=== PATIENT | female | born 1965 | race Hispanic/Latino ===

== ENCOUNTER → 2017-07-24 | Outpatient (CLI) | payer OTHER ==
[~2017-07-24] MED LIST: LEVOXYL88 MCG PO; LYRICA75 MG PO
--- NOTE | 2017-08-05 08:30 | Diagnostic Imaging Report ---
#[id number] - MGSCRNBI #BILATERAL DIGITAL SCREENING MAMMOGRAM WITH CAD: 07/24/2017 CLINICAL: Routine screening. Comparison is made to exams dated: 07/02/2016 mammogram, 07/02/2016 ultrasound, 05/31/2016 mammogram and 03/24/2012 mammogram - [facility]. Current study contains 9 films. The tissue of both breasts is heterogeneously dense. This may lower the sensitivity of mammography. Current study was also evaluated with a Computer Aided Detection (CAD) system. Bilateral breast implants are intact. Nodule in the left breast confirmed on prior studies to be a lymph node is not significantly changed when allowing for difference in technique. No significant masses, calcifications, or other findings are seen in either breast. There has been no significant interval change. IMPRESSION: BENIGN There is no mammographic evidence of malignancy. A 1 year screening mammogram is recommended. The patient will be notified by letter of the results. Sourav Arcos Jr., D.O. cw/:08/04/2017 12:48:49 Vp [employer]: Mary GUERRERO(R)(M), [facility] letter sent: Compared to Prior B9 Mammogram BI-RADS: 2 Benign
== END ==
LOC: MAMMO 10:01
PROVIDERS: ATTEND Family Medicine
DX: Z12.31 Encounter for screening mammogram for malignant neoplasm of breast (principal)
CPT/HCPCS: 77067

== ENCOUNTER → 2018-11-30 | Outpatient (CLI) | payer OTHER ==
--- NOTE | 2018-12-07 08:39 | Diagnostic Imaging Report ---
#[id number] - MGSCRBIL #BILATERAL DIGITAL SCREENING MAMMOGRAM WITH CAD: 11/30/2018 CLINICAL: Routine screening. Comparison is made to exams dated: 07/24/2017 mammogram, 07/02/2016 mammogram and 05/31/2016 mammogram - [facility]. Current study contains 8 films. There are scattered fibroglandular elements in both breasts. Current study was also evaluated with a Computer Aided Detection (CAD) system. Benign appearing calcifications are noted bilaterally. Bilateral breast implants are intact. There are benign nodes in both breasts. No significant masses, calcifications, or other findings are seen in either breast. IMPRESSION: BENIGN There is no mammographic evidence of malignancy. A 1 year screening mammogram is recommended. The patient will be notified by letter of the results. DIMA CHAVARRIA M.D. ct/penrad:12/04/2018 15:18:16 Debubblizer: Mary LO)(Hortensia), [facility] letter sent: Normal Exam Mammogram BI-RADS: 2 Benign
== END ==
LOC: MAMMO 15:50
PROVIDERS: ATTEND Family Medicine
DX: Z12.31 Encounter for screening mammogram for malignant neoplasm of breast (principal)
CPT/HCPCS: 77067

== ENCOUNTER 2020-03-19 00:30 | Emergency (ER) | payer SELFPAY ==
[~2020-03-19] VITALS: Ht 165.1 cm; Wt 61.2 kg
[2020-03-19] MEDS ORDERED: AZITHROMYCIN 250 MG TAB PO ONE (01:00)
[2020-03-19] MEDS ORDERED: ACETAMINOPHEN/CODEINE ELIX 120-12 MG/5 ML UDC NG ONE (01:00)
[2020-03-19] MEDS ORDERED: ACETAMINOPHEN/CODEINE 300MG - 30MG TAB PO ONE (01:00)
[2020-03-19] MEDS ORDERED: ONDANSETRON HCL 4 MG ORAL DISINTEGRATING TAB PO ONE (01:15)
--- NOTE | 2020-03-19 01:24 | Diagnostic Imaging Report ---
EXAMINATION: CHEST SINGLE (PORTABLE) INDICATION: ^Y ^COVID ^[id number] ^[id number] COMPARISON: None FINDINGS: TUBES and LINES: None. LUNGS: Normal lung volumes. Patchy mid and lower lung hazy airspace opacities. PLEURA: No pleural effusion or pneumothorax. HEART AND MEDIASTINUM: The cardiomediastinal silhouette is unremarkable. BONES AND SOFT TISSUES: Cervical fixation hardware. No acute osseous lesion. Soft tissues are unremarkable. UPPER ABDOMEN: No free air under the diaphragm. There are cholecystectomy clips. IMPRESSION: Multifocal pneumonia. Signed by: Filiberto Grullon DO on 03/19/2020 1:21 AM
--- NOTE | 2020-03-19 01:34 | Emergency Department Note ---
History of Present Illnes History of Present Illness Chief Complaint: COVID PUI History of Present Illness This is a 55 year old female arrives to the ED with complaints of shortness of breath after testing positive for the coronavirus on Friday.. Chief Complaint Comment Patient states she tested postive for COVID-19 on and has felt short of breath since. Patient noted to be tachypneic with normal oxygen saturation levels. Patient denies any fever at home. States she has been taking motrin and tea at home. ER MD to room for inital evaluation. Historian: Patient Arrival Mode: Car Duration (how long): day(s) Timing of current episode: constant Progression: waxing and waning Chronicity: new Past Medical/Family History Physician Review I have reviewed the patient's past medical and family history. Any updates have been documented here. Past Medical History Recent Fever: No Clinical Suspicion of Infectio: No New/Unexplained Change in Ment: No Past Medical History: None Past Surgical History: Cholecysctectomy, Appendectomy, Back Surgery Social History Smoking Cessation: Never Smoker Counseling Performed: No Alcohol Use: None Any Illegal Drug Use: No Other Any Pre-Existing Lines (PICC,: No Review of Systems Review of Systems Constitutional: Reports no symptoms EENTM: Reports no symptoms Cardiovascular: Reports no symptoms Respiratory: Reports as per HPI Gastrointestinal: Reports no symptoms Genitourinary: Reports no symptoms Musculoskeletal: Reports no symptoms Integumentary: Reports no symptoms Neurological: Reports no symptoms Psychological: Reports no symptoms Endocrine: Reports no symptoms Hematological/Lymphatic: Reports no symptoms Physical Exam Related Data Allergies: Uncoded Allergies: CIPROFLOXACIN (Allergy, Unknown, 03/19/20) Triage Vital Signs Vital Signs Date Time Temp Pulse Resp B/P (MAP) Pulse Ox O2 Delivery O2 Flow Rate FiO2 03/19/20 00:39 99.6 88 41 141/81 99 Room Air Vital signs reviewed: Yes Physical Exam CONSTITUTIONAL Constitutional: Present well-developed, Present well-nourished HENT HENT: Present normocephalic, Present atraumatic, Present oropharynx clear/moist, Present nose normal HENT L/R: Present left ext ear normal, Present right ext ear normal EYES Eyes: Reports PERRL, Reports conjunctivae normal NECK Neck: Present ROM normal PULMONARY Pulmonary: Present effort normal, Present breath sounds normal, Present other (mild tachypnea) CARDIOVASCULAR Cardiovascular: Present regular rhythm, Present heart sounds normal, Present capillary refill normal, Present normal rate GASTROINTESTINAL Abdominal: Present soft, Present nontender, Present bowel sounds normal GENITOURINARY Genitourinary: Present exam deferred SKIN Skin: Present warm, Present dry MUSCULOSKELETAL Musculoskeletal: Present ROM normal NEUROLOGICAL Neurological: Present alert, Present oriented x 3, Present no gross motor or sensory deficits PSYCHOLOGICAL Psychological: Present mood/affect normal, Present judgement normal Results Imaging Imaging results reviewed: Yes Procedures 12 Lead ECG Interpretation ECG Interpretation : ECG: ECG 1 Prior ECG tracings: reviewed Rhythm: sinus rhythm QRS axis: left ST segments normal: Yes T waves normal: Yes Clinical Impression: normal ECG Assessment & Plan Medical Decision Making MDM 55-year-old well-appearing female arrived to the ED after being diagnosed with a coronavirus. Patient notes ecchymotic tachypneic on exam but otherwise saturating 100% even on exertion without requiring supplemental oxygen. Patient's chest x-ray is concerning multifocal pneumonia, however, she does not require O2 support this time in stable for discharge home. Patient discharged home on Zithromax, Zofran/Tylenol with codeine for her cough. Strict retroflex return given. Patient stable at time of discharge. Assessment & Plan Final Impression: (1) COVID-19 Depart Disposition: HOME, SELF-CARE Last Vital Signs Date Time Temp Pulse Resp B/P (MAP) Pulse Ox O2 Delivery O2 Flow Rate FiO2 03/19/20 00:52 91 28 133/88 96 Room Air 03/19/20 00:39 99.6 Home Meds Active Scripts Codeine Phosphate/Guaifenesin (Guaifen-Codeine 200-20 mg/10Ml) 10 Ml Liquid, 10 ML PO Q8HR PRN for COUGH, #50 Prov:SANDHIR, AMBICA, DO 03/19/20 Azithromycin (Z-SANDY) 250 Mg Tablet, 250 MG PO UD, #1 UDPKT Z-Pack Prov:SANDHIR, AMBICA, DO 03/19/20 Ondansetron Hcl* (ZOFRAN*) 4 Mg Tablet, 4 MG SL Q6H PRN for NAUSEA, #14 MG 0 Refills Prov:SANDHIR, AMBICA, DO 03/19/20 Reported Medications Pregabalin (LYRICA) 75 Mg Cap, 75 MG PO DAILY, CAP 12/27/13 Levothyroxine Sodium (LEVOXYL) 88 Mcg Tablet, 88 MCG PO DAILY 12/27/13 Medications in the ED Acetaminophen/ Codeine Phosphate 1 ea NOW ONCE PO ; Start 03/19/20 at 01:00; Stop 03/19/20 at 00:54; Status DC Azithromycin 500 mg ONCE ONCE PO Last administered on 03/19/20at 01:19; Admin Dose 500 MG; Start 03/19/20 at 01:00; Stop 03/19/20 at 01:09; Status DC Acetaminophen/ Codeine Phosphate 10 ml ONCE ONCE NG ; Start 03/19/20 at 01:00; Stop 03/19/20 at 01:09; Status DC Ondansetron HCl 4 mg ONCE ONCE PO Last administered on 03/19/20at 01:19; Admin Dose 4 MG; Start 03/19/20 at 01:15; Stop 03/19/20 at 01:16; Status DC GISEL VARGAS DO Mar 19, 2020 01:34
[2020-03-19] MEDS ORDERED: GUAIFEN-CODEINE10 ML PO (01:37)
[2020-03-19] MEDS ORDERED: AZITHROMYCIN250 MG PO (01:37)
[2020-03-19] MEDS ORDERED: ZOFRAN4 MG SL (01:37)
== END 2020-03-19 02:13 | disposition home or self-care (01) ==
LOC: ER 00:40
DX: U07.1 COVID-19 (principal); R50.9 Fever, unspecified; R06.02 Shortness of breath
CPT/HCPCS: 71045; 93005; 99283; Q0162

== ENCOUNTER 2020-03-21 15:32 | Inpatient (IN) | payer OTHER, SELFPAY ==
[~2020-03-21] VITALS: Ht 165.1 cm; Wt 61.2 kg
[~2020-03-21 15:32] MED LIST changes: +AZITHROMYCIN250 MG PO; +GUAIFEN-CODEINE10 ML PO; +ZOFRAN4 MG SL
[2020-03-21] MEDS ORDERED: SODIUM CHLORIDE 0.9% 1000ML 1,000 ML IV STA (16:20)
[2020-03-21] MEDS ORDERED: MORPHINE SULFATE 2 MG/ML SYR 1ML IV NR (16:20)
[2020-03-21] MEDS ORDERED: ONDANSETRON HCL INJ 2MG/ML 2ML 2 MG/ML VIAL IV NR (16:30)
[2020-03-21] MEDS ORDERED: AZITHROMYCIN 500MG/NS 250 ML 250 ML IV SCH (16:30)
[2020-03-21 16:49] LABS: BASOPHILS % 0.3 % (0.0-1.0); EOSINOPHILS % 0.3 % (0.0-6.0); HEMOGLOBIN 16.4 g/dL (12.0-16.0); LYMPHOCYTES % 16.8 % (18.0-39.1); MEAN CORPUSCULAR HEMOGLOBIN 30.4 pg (28-32); MEAN CORPUSCULAR HGB CONC 34.2 g/dL (31-35); MEAN CORPUSCULAR VOLUME 89.1 fL (81-99); MONOCYTES # (AUTO) 0.6 (0.2-0.8); MONOCYTES % 9.6 % (4.4-11.3); NEUTROPHILS # (AUTO) 4.4 (2.1-6.9); NEUTROPHILS % 72.5 % (38.7-80.0); PLATELET COUNT 322 x10e3/uL (140-360); RED BLOOD COUNT 5.39 x10e6/uL (3.6-5.1)
[2020-03-21 16:58] LABS: INR 0.88; PARTIAL THROMBOPLASTIN TIME 34.3 seconds (23.8-35.5); PROTHROMBIN TIME 12.4 seconds (11.9-14.5)
[2020-03-21 17:05] LABS: ALANINE AMINOTRANSFERASE 26 IU/L (0-55); ALBUMIN/GLOBULIN RATIO 0.7 (0.8-2.0); ALKALINE PHOSPHATASE 110 IU/L (40-150); ANION GAP 16.9 mmol/L (8-16); BLOOD UREA NITROGEN 9 mg/dL (7-26); BUN/CREATININE RATIO 13 (6-25); CARBON DIOXIDE 25 mmol/L (22-29); CHLORIDE 100 mmol/L (98-107); CREATINE KINASE 16 IU/L (29-168); CREATININE, SERUM 0.67 mg/dL (0.57-1.11); EST GLOMERULAR FILTRATION RATE > 60 ML/MIN (60-); GLUCOSE 93 mg/dL (74-118); POTASSIUM 3.9 mmol/L (3.5-5.1); SODIUM 138 mmol/L (136-145)
--- NOTE | 2020-03-21 17:10 | Diagnostic Imaging Report ---
EXAMINATION: CHEST SINGLE (PORTABLE) INDICATION: ^Y ^covid ^[id number] ^[id number] COMPARISON: Chest radiograph 03/19/2020 FINDINGS: TUBES and LINES: None. LUNGS: Low lung volumes. Patchy bilateral airspace opacities in the lower lobes which is mildly increased on the left compared to prior exam. PLEURA: No pleural effusion or pneumothorax. HEART AND MEDIASTINUM: The cardiomediastinal silhouette is unremarkable. BONES AND SOFT TISSUES: No acute osseous lesion. Soft tissues are unremarkable. UPPER ABDOMEN: No free air under the diaphragm. IMPRESSION: Patchy bilateral lower lobe airspace opacities are increased on the left, remains concerning for multifocal pneumonia. Signed by: Dr. Rob Wolfe M.D. on 03/21/2020 5:07 PM
[2020-03-21] MEDS: ENOXAPARIN 30 MG/0.3 ML SYR SC SCH (17:13)
[2020-03-21] MEDS: DEXAMETHASONE SOD PHOS 10 MG/1 ML VIAL IV SCH (17:13)
[2020-03-21 17:36] LABS: CREATINE KINASE MB < 1.00 ng/mL (0-4.3)
[2020-03-21] MEDS: CEFTRIAXONE SOD 2 GM/NS 100 ML 100 ML IV SCH (18:39)
[2020-03-21] MEDS ORDERED: SODIUM CHLORIDE 0.9% 50ML 50 ML ONE (19:22)
[2020-03-21] MEDS ORDERED: IOPAMIDOL 370 MG/ML 200 ML INFUS..BTL INJ ONE (19:22)
--- NOTE | 2020-03-21 19:39 | Emergency Department Note ---
History of Present Illnes History of Present Illness Chief Complaint: COVID PUI History of Present Illness This is a 55 year old female Patient in from home with complaints of shortness of breath that started this past Friday and has gotten worse. Patient tested positive for Covid on 03/15 with symptoms starting on 03/13/2020. Patient is grunting when she breaths and is tachypneic and tachycardic. Per spouse, the patient had a saturation of 86% on room air at home with their home pulse ox. Historian: Patient Arrival Mode: Car Retail Security Professional Required: No Onset (how long ago): week(s) (1) Radiation: Reports non-radiation Severity: moderate Onset quality: gradual Timing of current episode: constant Progression: worsening Chronicity: new Context: Denies recent illness Relieving factors: none Exacerbating factors: none Associated symptoms: Reports chest pain, Reports cough, Reports fever/chills, Reports headaches, Reports shortness of breath Past Medical/Family History Physician Review I have reviewed the patient's past medical and family history. Any updates have been documented here. Past Medical History Recent Fever: Yes Clinical Suspicion of Infectio: No New/Unexplained Change in Ment: No Past Medical History: None Past Surgical History: Cholecysctectomy, Appendectomy, Back Surgery Social History Smoking Cessation: Never Smoker Counseling Performed: No Alcohol Use: Occasional Any Illegal Drug Use: No TB Exposure/Symptoms: No Physically hurt or threatened: No Family History Family history of heart diseas: No Other Any Pre-Existing Lines (PICC,: No Review of Systems Review of Systems Constitutional: Reports as per HPI, Reports chills, Reports fever EENTM: Reports no symptoms Cardiovascular: Reports as per HPI, Reports chest pain Respiratory: Reports as per HPI, Reports cough, Reports pain with cough, Repo rts dyspnea Gastrointestinal: Reports no symptoms Genitourinary: Reports no symptoms Musculoskeletal: Reports no symptoms Integumentary: Reports no symptoms Neurological: Reports no symptoms Psychological: Reports no symptoms Endocrine: Reports no symptoms Hematological/Lymphatic: Reports no symptoms Physical Exam Related Data Allergies: Uncoded Allergies: CIPROFLOXACIN (Allergy, Unknown, 03/19/20) Triage Vital Signs Vital Signs Date Time Temp Pulse Resp B/P (MAP) Pulse Ox O2 Delivery O2 Flow Rate FiO2 03/21/20 16:10 99.0 110 38 119/91 93 Room Air Vital signs reviewed: Yes Physical Exam CONSTITUTIONAL Constitutional: Present well-developed, Present well-nourished, Present other (ANXIOUS) HENT HENT: Present normocephalic, Present atraumatic, Present oropharynx clear/moist, Present nose normal HENT L/R: Present left ext ear normal, Present right ext ear normal EYES Eyes: Reports PERRL, Reports conjunctivae normal NECK Neck: Present ROM normal PULMONARY Pulmonary: Present breath sounds normal, Present respiratory distress (MILD) CARDIOVASCULAR Cardiovascular: Present regular rhythm, Present heart sounds normal, Present capillary refill normal, Present tachycardia GASTROINTESTINAL Abdominal: Present soft, Present nontender, Present bowel sounds normal GENITOURINARY Genitourinary: Present exam deferred SKIN Skin: Present warm, Present dry MUSCULOSKELETAL Musculoskeletal: Present ROM normal NEUROLOGICAL Neurological: Present alert, Present oriented x 3, Present no gross motor or sensory deficits PSYCHOLOGICAL Psychological: Present mood/affect normal, Present judgement normal Results Laboratory Result Diagram: 03/21/20 1627 03/21/20 1627 Laboratory Laboratory Tests Test 03/21/20 16:46 03/21/20 16:27 White Blood Count 6.12 x10e3/uL (4.8-10.8) Red Blood Count 5.39 x10e6/uL (3.6-5.1) Hemoglobin 16.4 g/dL (12.0-16.0) Hematocrit 48.0 % (34.2-44.1) Mean Corpuscular Volume 89.1 fL (81-99) Mean Corpuscular Hemoglobin 30.4 pg (28-32) Mean Corpuscular Hemoglobin Concent 34.2 g/dL (31-35) Red Cell Distribution Width 12.0 % (11.7-14.4) Platelet Count 322 x10e3/uL (140-360) Neutrophils (%) (Auto) 72.5 % (38.7-80.0) Lymphocytes (%) (Auto) 16.8 % (18.0-39.1) Monocytes (%) (Auto) 9.6 % (4.4-11.3) Eosinophils (%) (Auto) 0.3 % (0.0-6.0) Basophils (%) (Auto) 0.3 % (0.0-1.0) Neutrophils # (Auto) 4.4 (2.1-6.9) Lymphocytes # (Auto) 1.0 (1.0-3.2) Monocytes # (Auto) 0.6 (0.2-0.8) Eosinophils # (Auto) 0.0 (0.0-0.4) Basophils # (Auto) 0.0 (0.0-0.1) Absolute Immature Granulocyte (auto 0.03 x10e3/uL (0-0.1) Prothrombin Time 12.4 seconds (11.9-14.5) Prothromb Time International Ratio 0.88 Activated Partial Thromboplast Time 34.3 seconds (23.8-35.5) D-Dimer Quantitative (PE/DVT) 0.79 ug/mLFEU (0.00-0.45) Sodium Level 138 mmol/L (136-145) Potassium Level 3.9 mmol/L (3.5-5.1) Chloride Level 100 mmol/L (98-107) Carbon Dioxide Level 25 mmol/L (22-29) Anion Gap 16.9 mmol/L (8-16) Blood Urea Nitrogen 9 mg/dL (7-26) Creatinine 0.67 mg/dL (0.57-1.11) Estimat Glomerular Filtration Rate > 60 ML/MIN (60-) BUN/Creatinine Ratio 13 (6-25) Glucose Level 93 mg/dL (74-118) Calcium Level 9.0 mg/dL (8.4-10.2) Total Bilirubin 0.3 mg/dL (0.2-1.2) Aspartate Amino Transf (AST/SGOT) 36 IU/L (5-34) Alanine Aminotransferase (ALT/SGPT) 26 IU/L (0-55) Alkaline Phosphatase 110 IU/L (40-150) Creatine Kinase 16 IU/L (29-168) Creatine Kinase MB < 1.00 ng/mL (0-4.3) Troponin I < 0.001 ng/mL (0-0.300) B-Type Natriuretic Peptide 31.0 pg/mL (0-100) Total Protein 7.3 g/dL (6.5-8.1) Albumin 3.0 g/dL (3.5-5.0) Globulin 4.3 g/dL (2.3-3.5) Albumin/Globulin Ratio 0.7 (0.8-2.0) Lab results reviewed: Yes Imaging Imaging results reviewed: Yes Impressions EXAMINATION: CHEST SINGLE (PORTABLE) INDICATION: ^Y ^covid ^[id number] ^1645 COMPARISON: Chest radiograph 03/19/2020 FINDINGS: TUBES and LINES: None. LUNGS: Low lung volumes. Patchy bilateral airspace opacities in the lower lobes which is mildly increased on the left compared to prior exam. PLEURA: No pleural effusion or pneumothorax. HEART AND MEDIASTINUM: The cardiomediastinal silhouette is unremarkable. BONES AND SOFT TISSUES: No acute osseous lesion. Soft tissues are unremarkable. UPPER ABDOMEN: No free air under the diaphragm. IMPRESSION: Patchy bilateral lower lobe airspace opacities are increased on the left, remains concerning for multifocal pneumonia. Signed by: Dr. Rob Wolfe M.D. on 03/21/2020 5:07 PM Procedures 12 Lead ECG Interpretation ECG Interpretation : ECG: ECG 1 Retail Security Professional: Interpreted by ED physician Date: Mar 21, 2020 Time: 19:24 Rhythm: sinus rhythm Rate: normal BPM: 71 QRS axis: normal ST segments normal: Yes T wave inversion: III, aVR, V1, V3 T waves flattening: aVF, V2, V4, V5, V6 Clinical Impression: abnormal ECG Critical Care Time Total Critical Care Time (min): 30 Critical care time exclusive o: separately billable procedures Critcal care necessary due to: respiratory failure Critcal care time spent by me: discussion w consultants, discussion w primary provider, evaluation patient response to tx, examination of patient, order/perform tx or interventions, order/review laboratory studies, order/review radiographic studies, pulse oximetry, re-evaluation of patient condition, review of old charts Assessment & Plan Medical Decision Making MDM SOB, COUGH, HYPOXIA - LIKELY COVID - CBC, CHEM, ECG, CARDIACS, D-DIMER, BNP, CXR AND CT CHEST IF POSITIVE D-DIMER, COVID SWAB - EVAL PNEUMONIA, COVID19, CHF, PULM EMBOLUS Reassessment Reassessment ADMIT TO DR KOO (FOR PCP KAI), CONSULT DR QUIÑONES Assessment & Plan Final Impression: (1) Pneumonia due to COVID-19 virus (2) Hypoxia Depart Disposition: ADMITTED Last Vital Signs Date Time Temp Pulse Resp B/P (MAP) Pulse Ox O2 Delivery O2 Flow Rate FiO2 03/21/20 18:15 98.8 80 18 138/82 96 03/21/20 16:10 Room Air Home Meds Active Scripts Codeine Phosphate/Guaifenesin (Guaifen-Codeine 200-20 mg/10Ml) 10 Ml Liquid, 10 ML PO Q8HR PRN for COUGH, #50 Prov:GISEL VARGAS, DO 03/19/20 Azithromycin (Z-SANDY) 250 Mg Tablet, 250 MG PO UD, #1 UDPKT Z-Pack Prov:GISEL VARGAS, DO 03/19/20 Ondansetron Hcl* (ZOFRAN*) 4 Mg Tablet, 4 MG SL Q6H PRN for NAUSEA, #14 MG 0 Refills Prov:GISEL VARGAS, DO 03/19/20 Reported Medications Pregabalin (LYRICA) 75 Mg Cap, 75 MG PO DAILY, CAP 12/27/13 Levothyroxine Sodium (LEVOXYL) 88 Mcg Tablet, 88 MCG PO DAILY 12/27/13 Medications in the ED Morphine Sulfate 2 mg ONCE IV ; Start 03/21/20 at 16:20; Stop 03/21/20 at 16:45; Status DC Ondansetron HCl 4 mg ONCE IV Last administered on 03/21/20at 17:13; Admin Dose 4 MG; Start 03/21/20 at 16:30; Stop 03/21/20 at 17:59; Status DC Sodium Chloride 1,000 ml @ 0 mls/hr Q0M STAT IV Last administered on 03/21/20at 17:13; Admin Dose 250 MLS/HR; Start 03/21/20 at 16:20; Stop 03/21/20 at 16:26; Status DC Ceftriaxone Sodium 100 ml @ 100 mls/hr Q24H IV Last administered on 03/21/20at 18:39; Admin Dose 100 MLS/HR; Start 03/21/20 at 16:30; Stop 03/26/20 at 16:29 Azithromycin 250 ml @ 100 mls/hr Q24H IV Last administered on 03/21/20at 17:13; Admin Dose 100 MLS/HR; Start 03/21/20 at 16:30; Stop 03/26/20 at 16:29 Enoxaparin Sodium 30 mg Q12HR SC Last administered on 03/21/20at 17:13; Admin Dose 30 MG; Start 03/21/20 at 17:00; Stop 03/28/20 at 16:59 Dexamethasone Sodium Phosphate 6 mg Q24H IV Last administered on 03/21/20at 17:13; Admin Dose 6 MG; Start 03/21/20 at 16:30; Stop 03/28/20 at 16:29 Sodium Chloride 50 ml @ ud STK-MED ONCE .ROUTE ; Start 03/21/20 at 19:22; Stop 03/21/20 at 19:16; Status DC Iopamidol 74,000 mg STK-MED ONCE INJ ; Start 03/21/20 at 19:22; Stop 03/21/20 at 19:16; Status DC AMBER ORTIZ MD Mar 21, 2020 19:39
--- NOTE | 2020-03-21 19:46 | Diagnostic Imaging Report ---
EXAM: CT Chest WITH contrast (PE Protocol) INDICATION: ^Y ^PE PROTOCOL, PLEURITIC CP/COVID/POS D-DIMER ^[id number] ^[id number] COMPARISON: Chest radiograph performed earlier on the same day TECHNIQUE: Chest was scanned utilizing a multidetector helical scanner from the lung apex through the level of the diaphragm after administration of IV contrast. Thin section reconstructions were obtained with special concentration on the pulmonary arteries. Coronal and sagittal reformations were obtained. Pulmonary embolism protocol was performed. IV CONTRAST: 100 mL of Isovue 370 COMPLICATIONS: None RADIATION DOSE: Total DLP: 308.35 mGy*cm Estimated effective dose: (DLP x 0.014 x size factor) mSv CTDIvol has been reviewed. It is below the limits set by the Radiation Protocol Committee (RPC). Dose modulation, iterative reconstruction, and/or weight based adjustment of the mA/kV was utilized to reduce the radiation dose to as low as reasonably achievable. FINDINGS: LINES/ TUBES: None. LUNGS AND AIRWAYS: Suboptimal evaluation of the proximal right upper lobar pulmonary artery secondary to streak artifact from dense IV contrast. Otherwise, no filling defect is identified within the pulmonary arteries to the segmental level. Peripheral predominant groundglass opacities throughout both lungs with areas of consolidation in the lower lobes. Airways are normal. PLEURA: The pleural spaces are clear. HEART AND MEDIASTINUM: The thyroid gland is normal. No mediastinal, hilar or axillary lymphadenopathy. The heart is normal in size. Trace physiologic fluid within the pericardial recesses. Aorta and coronary arteries are unremarkable. Main pulmonary artery measures 2.4 cm in diameter and the ascending aorta measures 2.9 cm. UPPER ABDOMEN: No acute abnormalities in the visualized portions of the upper abdomen given limitations with timing of contrast bolus. Postsurgical changes at the gastroesophageal junction, possibly related to fundoplication. Status post cholecystectomy surgical clips in the gallbladder fossa. BONES: The visualized bony thorax is within normal limits. SOFT TISSUES: No acute soft tissue abnormalities. Intact bilateral breast implants. IMPRESSION: 1. No pulmonary emboli given exam limitations. 2. Peripheral predominant ground glass opacities throughout both lungs with areas of consolidation in the lower lobes, concerning for multifocal pneumonia and findings are typical for COVID-19. Signed by: Dr. Rob Wolfe M.D. on 03/21/2020 7:43 PM
[2020-03-21] MEDS ORDERED: ONDANSETRON HCL INJ 2MG/ML 2ML 2 MG/ML VIAL IV PRN (20:00)
[2020-03-21] MEDS ORDERED: ACETAMINOPHEN 325 MG TAB PO PRN (20:00)
--- NOTE | 2020-03-21 21:00 | NUR ---
refueling ramp supervisor states that telemetry box c pulse ox acquired at this time. pt to be admitted to rm [id number]. report called to narendra vergara.
--- NOTE | 2020-03-21 21:20 | NUR ---
RECEIVED PATIENT FROM THE E.R. VIA STRETCHER. PATIENT IS ALERT AND ORIENTED. ASSISTED TO BED. AMBULATES INDEPENDENTLY. ORIENTED TO ROOM. O2 AT 2L/MIN. NO SOB. VITALS SIGNS CHECKED AND WITHIN NORMAL. CALL LIGHT WITHIN REACHED.
[2020-03-21 21:32] LABS: EOSINOPHILS % (MANUAL) 1 % (0-7); LYMPHOCYTES % (MANUAL) 5 % (19-48); MONOCYTES % (MANUAL) 6 % (3.4-9.0); NEUTROPHILS % (MANUAL) 79 % (40-74); PLATELET ESTIMATE ADEQUATE; PLATELET MORPHOLOGY COMMENT NORMAL; RBC MORPHOLOGY COMMENT NORMAL
--- NOTE | 2020-03-21 22:00 | NUR ---
Patient refused bed alarm.
[2020-03-21 22:40] VITALS: BP 134/87
[2020-03-21 22:42] VITALS: BP 134/87
[2020-03-21 22:52] VITALS: BP 134/87
[2020-03-21 23:25] VITALS: BP 127/77
[2020-03-21] MEDS: GUAIFENESIN/CODEINE 10 ML CUP PO PRN (23:28)
[2020-03-22] VITALS (8 sets, daily range): BP systolic 122–132; BP diastolic 73–88
[2020-03-22 01:28] LABS: CREATINE KINASE MB 0.5 ng/mL (0-5.0)
[2020-03-22] MEDS: LEVOTHYROXINE SODIUM 88 MCG TAB PO SCH (05:10)
[2020-03-22 05:26] LABS: HEMATOCRIT 42.1 % (34.2-44.1); HEMOGLOBIN 14.3 g/dL (12.0-16.0); LYMPHOCYTES # (AUTO) 0.5 (1.0-3.2); LYMPHOCYTES % 20.7 % (18.0-39.1); MEAN CORPUSCULAR HEMOGLOBIN 30.6 pg (28-32); MEAN CORPUSCULAR VOLUME 90.1 fL (81-99); MONOCYTES # (AUTO) 0.1 (0.2-0.8); MONOCYTES % 4.6 % (4.4-11.3); NEUTROPHILS # (AUTO) 1.6 (2.1-6.9); NEUTROPHILS % 74.2 % (38.7-80.0); PLATELET COUNT 301 x10e3/uL (140-360); RED BLOOD COUNT 4.67 x10e6/uL (3.6-5.1)
[2020-03-22 05:52] LABS: ALANINE AMINOTRANSFERASE 22 IU/L (0-55); ALBUMIN 2.5 g/dL (3.5-5.0); ALBUMIN/GLOBULIN RATIO 0.7 (0.8-2.0); ALKALINE PHOSPHATASE 93 IU/L (40-150); ANION GAP 14.3 mmol/L (8-16); BLOOD UREA NITROGEN 10 mg/dL (7-26); BUN/CREATININE RATIO 17 (6-25); CALCIUM 8.4 mg/dL (8.4-10.2); CARBON DIOXIDE 25 mmol/L (22-29); CHLORIDE 104 mmol/L (98-107); CREATININE, SERUM 0.58 mg/dL (0.57-1.11); EST GLOMERULAR FILTRATION RATE > 60 ML/MIN (60-); GLUCOSE 140 mg/dL (74-118); POTASSIUM 4.3 mmol/L (3.5-5.1); SODIUM 139 mmol/L (136-145)
--- NOTE | 2020-03-22 06:25 | NUR ---
Consult for Dr. Bernal called thru utility system operator.
--- NOTE | 2020-03-22 07:27 | Diagnostic Imaging Report ---
EXAMINATION: CHEST SINGLE (PORTABLE) INDICATION: PNEUMONIA. Shortness of breath. Cough. COMPARISON: CT from yesterday radiograph from yesterday. FINDINGS: TUBES and LINES: None. LUNGS: Predominantly peripheral bilateral patchy and hazy opacities. PLEURA: No pleural effusion or pneumothorax. HEART AND MEDIASTINUM: The cardiomediastinal silhouette is unremarkable. IMPRESSION: Unchanged bilateral multifocal pneumonia Signed by: Jose Miguel Neri MD on 03/22/2020 7:23 AM
--- NOTE | 2020-03-22 08:18 | NUR ---
GAVE PACKET OF INFORMATION WITH COMMUNITY [employer] FOR ASSISTANCE WITH LOW TO NO INCOME TO PATIENT. RESOURCES THAT PATIENT MAY BE ABLE TO FOLLOW UP UPON DISCHARGE. PT EDUCATED ON EACH RESOURCE AND UNDERSTANDING HOW TO FOLLOW UP TO SEE IF QUALIFIED FOR EACH RESOURCE.
--- NOTE | 2020-03-22 08:40 | Consultation ---
DATE OF CONSULTATION: Pulmonary Critical Care Consultation CHIEF COMPLAINT: Dyspnea and fevers. HISTORY OF PRESENT ILLNESS: The patient is a 55-year-old woman. She reports cough and difficulty breathing with exertion for 4 days. She denies any fevers. She had an outpatient COVID test that was positive for 5 days ago. She notes some mild chest pain anteriorly on the left side. PAST SURGICAL HISTORY: 1. Status post cervical spine surgery. 2. Status post neck and lumbar surgery. 3. Status post appendectomy. 4. Status post cholecystectomy. PAST MEDICAL HISTORY: 1. No prior respiratory problems. 2. No prior cardiac disease. 3. No history of diabetes. SOCIAL HISTORY: The patient is not a drinker. She is not a smoker. She does not use any illegal trucks. FAMILY HISTORY: Family history is noncontributory. REVIEW OF SYSTEMS: The patient is afebrile. She is not having any headache. She has no neck pain. She does note some cough. She has some dyspnea. She is not having any chest pain. She has no nausea or vomiting. She is not having any leg edema. PHYSICAL EXAMINATION: VITAL SIGNS: The patient is afebrile. The blood pressure is 122/73, saturation is 96% on 3 L and the pulse is 55. HEENT: Shows no facial swelling or erythema. LYMPHATIC: Shows no submandibular, cervical or supraclavicular adenopathy. CARDIAC: Reveals a regular rate and rhythm with normal S1 and S2. LUNGS: Auscultation of lungs reveals crackles at the bases. There is no wheezing. ABDOMEN: Soft and nontender. There is no rebound or guarding. EXTREMITIES: Shows no leg edema or calf tenderness. There is no cyanosis or clubbing. SKIN: Shows no rashes. NEUROLOGICAL: Shows no focal abnormalities. LABORATORY DATA: White blood cell count is 2.17 and the hemoglobin is 14.3. The platelet count is 301. The BUN to creatinine ratio is normal. The other electrolytes are within normal limits. The albumin is 2.5. RADIOGRAPHIC DATA: CT scan of the chest shows no pulmonary embolism. There are ground-glass opacities throughout both lung [place] suggestive of multifocal pneumonia. IMPRESSION: 1. COVID-19 and viral pneumonia. 2. Leukopenia. PLAN: 1. The patient will receive dexamethasone 6 mg a day. 2. Continue Lovenox for DVT prophylaxis. 3. The patient is a candidate for remdesivir. 4. Continue oxygen as needed. 5. Echocardiogram. MD RHETT Mckinley/ARA /[id number]
[2020-03-22] MEDS: ENOXAPARIN 30 MG/0.3 ML SYR SC SCH ×2 (09:52→20:30)
[2020-03-22 10:29] LABS: CREATINE KINASE 14 IU/L (29-168)
--- NOTE | 2020-03-22 15:05 | NUR ---
Dr. Bernal at bedside to see patient. Obtained consent to start Remdesivir using [employer] link caponizer Vinay #[id number]. Patient agreed and Dr. Bernal to enter new orders. No visible signs of distress noted at this time. O2 via nasal canula currently on 2L. Will give PRN for cough. Call light within reach.
[2020-03-22] MEDS ORDERED: SODIUM CHLORIDE 0.9% 250ML 250 ML ONE (15:47)
[2020-03-22] MEDS: CEFTRIAXONE SOD 2 GM/NS 100 ML 100 ML IV SCH (15:48)
[2020-03-22] MEDS: DEXAMETHASONE SOD PHOS 10 MG/1 ML VIAL IV SCH (15:48)
[2020-03-22] MEDS ORDERED: REMDESIVIR 200MG/NS 100ML 200 MG IV ONE (16:45)
[2020-03-22] MEDS: GUAIFENESIN/CODEINE 10 ML CUP PO PRN (16:51)
[2020-03-22] MEDS ORDERED: ENOXAPARIN INJ 80 MG/0.8 ML SYR SC SCH (17:00)
[2020-03-22] MEDS: ASCORBIC ACID 500 MG TAB PO SCH (17:14)
--- NOTE | 2020-03-22 21:35 | Consultation ---
DATE OF CONSULTATION: HISTORY OF PRESENT ILLNESS: This is a 55-year-old female, comes in with shortness of breath and fever. The patient has been sick for 4 days. She had a COVID test positive 5 days ago. The patient came to the hospital because she is short of breath. She think her illness started about 10 days ago. The patient who has history of osteoarthritis, cervical spine surgery, neck surgery, lumbar surgery, appendectomy, and cholecystectomy. PAST SURGICAL HISTORY: As above. ALLERGIES: NKA. SOCIAL HISTORY: There is no smoking, drug abuse, or alcohol abuse. FAMILY HISTORY: Hypertension. REVIEW OF SYSTEMS: At the present time fever, shortness of breath, and cough. LABORATORY DATA: Reviewed. Her white count when she first came was 6.12, dropped to 2.1 and hemoglobin 16, came down to 4.3. Sodium 139, potassium 4.3 with a creatinine 0.58. The patient was currently hypoxemic on 3 L. IMPRESSION: COVID-19 and respiratory failure. We will give Rocephin 1 g daily 5 days, azithromycin 500 mg daily for 3 days, dexamethasone as ordered for 10 days, 6 mg. Discussed with the patient about remdesivir which was recently approved by the FDA. There is still ongoing in this epidemic. She understands that she can stop at any time she wants, but she is willing to try it. We also talked about convalescent plasma. The patient in my opinion would not benefit. She has been sick for too long, which she also does not wanted it. We will continue with supportive care, oxygen as needed. We will follow. MD PILO Crane/JOANNEL /[id number]
[2020-03-23] VITALS (8 sets, daily range): BP systolic 121–127; BP diastolic 72–88
[2020-03-23] MEDS: GUAIFENESIN/CODEINE 10 ML CUP PO PRN ×2 (00:05→20:29)
--- NOTE | 2020-03-23 01:27 | History and Physical ---
PRIMARY CARE PHYSICIAN: Dr. Lane Strickland. CHIEF COMPLAINT: Dyspnea and fever with oxygen saturation of 86% at home. HISTORY OF PRESENT ILLNESS: This is a 55-year-old female with past medical history of thyroid disorder, presented to the ER initially on 03/15, after she started having symptoms of shortness of breath, cough, and fever. At that time, she has tested positive for COVID. She was discharged thereafter and presented today with increased shortness of breath, tachycardia. Per spouse, her oxygen saturation was 86% on room air on their home pulse oximeter. Upon my assessment, she reports her shortness of breath is improving, but still worsening with exertion. She has been afebrile. Denies any hemoptysis, any chest pain, fever, hematuria, abdominal pain, nausea, or vomiting. Chest x-ray upon arrival, showed patchy bilateral lower lobe airspace opacity suggesting multifocal pneumonia. Will be admitted for further evaluation. PAST MEDICAL HISTORY: Hypothyroidism. PAST SURGICAL HISTORY: Reports, 1. Cervical spine surgery. 2. Lumbar surgery. 3. Appendectomy. 4. Cholecystectomy. 5. x2. FAMILY MEDICAL HISTORY: Noncontributory. SOCIAL HISTORY: She denies any tobacco, alcohol, or illicit drug use. Lives with family. ALLERGIES: CIPROFLOXACIN. REVIEW OF SYSTEMS: Twelve systems reviewed and negative except as reported in HPI. PHYSICAL EXAMINATION: VITAL SIGNS: Temperature 98.0, pulse is 63, respirations 18, blood pressure 127/79, and pulse ox is 98% on 3 L of nasal cannula. GENERAL: In no acute distress. Mild fatigue. HEENT: Normocephalic and atraumatic. NECK: Supple. LUNGS: With decreased breath sounds. CARDIOVASCULAR: Regular rate and rhythm. GI: Soft and nontender. NEUROLOGIC: Alert, awake, and oriented x3. MUSCULOSKELETAL: Moves all extremities. SKIN: Dry and intact. PSYCH: Calm. LABORATORY DATA: WBC 6.12, hemoglobin 16.4, hematocrit 48.0, and platelets 322. Sodium 139, potassium 4.3. BUN 10 and creatinine 0.58. Estimated GFR greater than 60. Blood glucose 140, AST 23, ALT 22, CK 20. Troponin I x3, negative. BNP 31. D-dimer 0.79. PT 12.4, INR 0.88, APTT 34.3. COVID PCR is pending, but was positive on 03/15. Blood cultures pending. Chest x-ray shows multifocal pneumonia. CT chest shows no pulmonary emboli concerning for multifocal pneumonia and findings are typical for COVID-19. ASSESSMENT AND PLAN: 1. Acute respiratory distress due to COVID-19 pneumonia. Chest x-ray and CT chest consistent with multifocal pneumonia. Fur Farmer and ID have been consulted. She is started on Rocephin and azithromycin, also on Decadron, and remdesivir. 2. Leukopenia. WBC is 2.17 today. We will continue to monitor closely. 3. Hypothyroidism. Continue with home levothyroxine. 4. Deep vein thrombosis prophylaxis. Continue on Lovenox subcu b.i.d. Dictated by JOIE Delgado Kim Pineda MD MY/MODL /[id number]
[2020-03-23 04:15] LABS: HEMATOCRIT 40.7 % (34.2-44.1); HEMOGLOBIN 13.8 g/dL (12.0-16.0); LYMPHOCYTES # (AUTO) 0.7 (1.0-3.2); LYMPHOCYTES % 12.1 % (18.0-39.1); MEAN CORPUSCULAR HGB CONC 33.9 g/dL (31-35); MEAN CORPUSCULAR VOLUME 88.5 fL (81-99); MONOCYTES # (AUTO) 0.3 (0.2-0.8); MONOCYTES % 4.9 % (4.4-11.3); NEUTROPHILS # (AUTO) 4.8 (2.1-6.9); NEUTROPHILS % 82.5 % (38.7-80.0); PLATELET COUNT 342 x10e3/uL (140-360)
[2020-03-23 04:34] LABS: ALANINE AMINOTRANSFERASE 20 IU/L (0-55); ALBUMIN 2.5 g/dL (3.5-5.0); ALBUMIN/GLOBULIN RATIO 0.7 (0.8-2.0); ALKALINE PHOSPHATASE 77 IU/L (40-150); ANION GAP 15.1 mmol/L (8-16); BLOOD UREA NITROGEN 13 mg/dL (7-26); BUN/CREATININE RATIO 23 (6-25); CALCIUM 8.1 mg/dL (8.4-10.2); CARBON DIOXIDE 24 mmol/L (22-29); CHLORIDE 104 mmol/L (98-107); CREATININE, SERUM 0.56 mg/dL (0.57-1.11); EST GLOMERULAR FILTRATION RATE > 60 ML/MIN (60-); GLUCOSE 127 mg/dL (74-118); POTASSIUM 4.1 mmol/L (3.5-5.1); SODIUM 139 mmol/L (136-145)
[2020-03-23] MEDS: LEVOTHYROXINE SODIUM 88 MCG TAB PO SCH (06:02)
--- NOTE | 2020-03-23 07:00 | NUR ---
REPORT GIVEN TO DAYSHIFT NURSE. ALERT AND ORIENTED. RESTING IN BED. NO SIGNS IV INFILTRATION. BED LOCKED AND IN LOW POSITION. CALL LIGHT WITHIN REACH.
[2020-03-23 07:06] LABS: LYMPHOCYTES % (MANUAL) 3 % (19-48); MONOCYTES % (MANUAL) 1 % (3.4-9.0); NEUTROPHILS % (MANUAL) 93 % (40-74); PLATELET ESTIMATE ADEQUATE; PLATELET MORPHOLOGY COMMENT NORMAL; RBC MORPHOLOGY COMMENT NORMAL
[2020-03-23] MEDS: ASCORBIC ACID 500 MG TAB PO SCH ×2 (09:50→17:24)
[2020-03-23] MEDS: AZITHROMYCIN 500MG/NS 250 ML 250 ML IV SCH (09:50)
[2020-03-23] MEDS: ENOXAPARIN 30 MG/0.3 ML SYR SC SCH ×2 (09:50→20:30)
[2020-03-23] MEDS: CEFTRIAXONE SOD 2 GM/NS 100 ML 100 ML IV SCH (09:50)
[2020-03-23] MEDS: ZINC SULFATE 50 MG CAP PO SCH (09:50)
--- NOTE | 2020-03-23 10:12 | Progress Note ---
DATE: SUBJECTIVE: The patient is afebrile. She feels a little better than yesterday, but still has some cough and dyspnea with exertion. PHYSICAL EXAMINATION: VITAL SIGNS: The blood pressure is 126/88, saturation is 96%, and the pulse is 66. HEENT: Shows no facial swelling or erythema. LYMPHATIC: Shows no submandibular, cervical, or supraclavicular adenopathy. CARDIAC: Reveals regular rate and rhythm with normal S1 and S2. LUNGS: Auscultation of lungs reveals rhonchorous breath sounds bilaterally. There is no wheezing. ABDOMEN: Soft and nontender. There is no rebound or guarding. EXTREMITIES: Show no leg edema or calf tenderness. There is no cyanosis or clubbing. SKIN: Shows no rashes. NEUROLOGICAL: Shows no focal abnormalities. LABORATORY DATA: White blood cell count is 5.77, hemoglobin is 13.8, and the platelet count is 342. The BUN to creatinine ratio is 13 to 0.56 and the other electrolytes are within normal limits. The albumin is 2.5. RADIOGRAPHIC DATA: Shows bilateral pneumonia. IMPRESSION: 1. Viral pneumonia and COVID-19 infection. 2. Leukopenia. PLAN: 1. Complete dexamethasone. 2. Complete remdesivir. 3. Continue Lovenox. 4. Continue oxygen. Pete Duncan MD [facility]/MODL /[id number]
[2020-03-23] MEDS: DEXAMETHASONE SOD PHOS 10 MG/1 ML VIAL IV SCH (17:24)
[2020-03-23] MEDS: REMDESIVIR 100MG/NS 100ML 100 MG IV SCH (17:24)
--- NOTE | 2020-03-23 20:16 | Progress Note ---
DATE: 03/23/2020 CONSULTANTS: 1. Dr. Duncan, cloud automation tester. 2. Dr. Bernal, Infectious Disease doctor. SUBJECTIVE: The patient reports shortness of breath and cough is improving. She denies any fever, chills, nausea, vomiting, chest pain. OBJECTIVE: VITAL SIGNS: Temperature 97.8, pulse 69, respirations 20, blood pressure 127/80, pulse ox is 96% on 1 L of nasal cannula. GENERAL: No acute distress. HEENT: Normocephalic atraumatic. NECK: Supple. LUNGS: Decreased breath sounds. CARDIOVASCULAR: Regular rate and rhythm. GI: Soft and nontender. NEUROLOGIC: Alert, awake, oriented x3. MUSCULOSKELETAL: Moves all extremities. No edema. SKIN: Dry and intact. PSYCH: Calm. LABORATORY DATA: WBC 5.77, hemoglobin 13.8, hematocrit 40.0, platelets 342. Sodium 139, potassium 4.1, BUN 13, creatinine 0.56, estimated GFR is greater than 60. Blood glucose 127. Troponin negative x3. MICROBIOLOGY: Blood cultures negative so far. IMPRESSION AND PLAN: 1. Acute respiratory distress due to coronavirus disease - 19 pneumonia. 2. Imaging showed multifocal pneumonia consistent with coronavirus disease -19 pneumonia. Helper Driver and ID on the case. Continue on remdesivir, dexamethasone, zinc sulfate, Rocephin, and azithromycin. 3. Leukopenia, now improved to 5.77. 4. Hypothyroidism. Continue levothyroxine. 5. Deep vein thrombosis prophylaxis. Continue Lovenox subcu b.i.d. PLAN: To continue current COVID treatment, ambulate as tolerated. Dictated by JOIE Delgado Kim Pineda MD MY/MODL /[id number]
--- NOTE | 2020-03-23 21:07 | Progress Note ---
DATE: SUBJECTIVE: Ms. Moralez is feeling better, still short of breath, still cough but overall better. PHYSICAL EXAMINATION: VITAL SIGNS: Stable, afebrile. O2 saturation 96%. HEENT: She is not icteric. NECK: Supple. CHEST: Crackles. HEART: S1, S2. ABDOMEN: Soft. Bowel sounds present. EXTREMITIES: No edema. SKIN: No rash. Remains on 1 L but actually when off, she was able to do well. IMPRESSION: Respiratory failure, improving coronavirus disease - 19. She continued to improve. We will check her oxygen tomorrow, oxygenation saturation on ambulation, and if she does not need anything, could be discharged home to continue oral home medication. She would not need anything if she is not hypoxemic, so we can discontinue remdesivir, dexamethasone, and antibiotic tomorrow morning. MD PILO Crane/MODL /[id number]
[2020-03-24] VITALS: BP 117/75
[2020-03-24 04:00] VITALS: BP 114/76
[2020-03-24] MEDS: LEVOTHYROXINE SODIUM 88 MCG TAB PO SCH (05:02)
--- NOTE | 2020-03-24 06:53 | NUR ---
REPORT GIVEN TO DAYSHIFT NURSE. ALERT AND ORIENTED. RESTING IN BED. NO SIGNS IV INFILTRATION. BED LOCKED AND IN LOW POSITION. CALL LIGHT WITHIN REACH.
[2020-03-24 08:00] VITALS: BP 122/74
[2020-03-24 09:00] VITALS: BP 122/72
--- NOTE | 2020-03-24 09:03 | Progress Note ---
DATE: SUBJECTIVE: The patient feels better. She has less cough and less congestion. She is down to 1 L of oxygen. PHYSICAL EXAMINATION: VITAL SIGNS: The blood pressure is 114/76 saturation is 96% on 1 L and the pulse is 72. HEENT: Shows no facial swelling or erythema. LYMPHATIC: Shows no submandibular, cervical, or supraclavicular adenopathy. CARDIAC: Reveals regular rate and rhythm with normal S1 and S2. LUNGS: Auscultation of lungs reveals clear breath sounds bilaterally. There is no wheezing. ABDOMEN: Soft and nontender. There is no rebound or guarding. EXTREMITIES: Shows no leg edema or calf tenderness. There is no cyanosis or clubbing. IMPRESSION: 1. Viral pneumonia and COVID-19 infection. 2. Hypothyroidism. PLAN: 1. Complete antibiotics and remdesivir. 2. Continue DVT prophylaxis. 3. The patient should be ready for discharge once remdesivir is completed. 4. .. MD RHETT Mckinley/ARA /[id number]
[2020-03-24] MEDS: ASCORBIC ACID 500 MG TAB PO SCH ×2 (09:19→14:53)
[2020-03-24] MEDS: AZITHROMYCIN 500MG/NS 250 ML 250 ML IV SCH (09:19)
[2020-03-24] MEDS: ZINC SULFATE 50 MG CAP PO SCH (09:19)
[2020-03-24] MEDS: CEFTRIAXONE SOD 2 GM/NS 100 ML 100 ML IV SCH (09:19)
[2020-03-24] MEDS: ENOXAPARIN 30 MG/0.3 ML SYR SC SCH (09:19)
[2020-03-24 09:51] LABS: HEMATOCRIT 41.5 % (34.2-44.1); HEMOGLOBIN 14.1 g/dL (12.0-16.0); LYMPHOCYTES # (AUTO) 0.6 (1.0-3.2); LYMPHOCYTES % 11.9 % (18.0-39.1); MEAN CORPUSCULAR HEMOGLOBIN 30.5 pg (28-32); MEAN CORPUSCULAR VOLUME 89.6 fL (81-99); MONOCYTES # (AUTO) 0.3 (0.2-0.8); MONOCYTES % 6.6 % (4.4-11.3); NEUTROPHILS # (AUTO) 4.2 (2.1-6.9); NEUTROPHILS % 80.9 % (38.7-80.0); PLATELET COUNT 410 x10e3/uL (140-360); RED BLOOD COUNT 4.63 x10e6/uL (3.6-5.1)
[2020-03-24 10:15] LABS: ALANINE AMINOTRANSFERASE 23 IU/L (0-55); ALBUMIN 2.6 g/dL (3.5-5.0); ALBUMIN/GLOBULIN RATIO 0.7 (0.8-2.0); ALKALINE PHOSPHATASE 81 IU/L (40-150); ANION GAP 13.9 mmol/L (8-16); BLOOD UREA NITROGEN 15 mg/dL (7-26); BUN/CREATININE RATIO 26 (6-25); CALCIUM 8.4 mg/dL (8.4-10.2); CARBON DIOXIDE 25 mmol/L (22-29); CHLORIDE 102 mmol/L (98-107); CREATININE, SERUM 0.58 mg/dL (0.57-1.11); EST GLOMERULAR FILTRATION RATE > 60 ML/MIN (60-); GLUCOSE 127 mg/dL (74-118); POTASSIUM 3.9 mmol/L (3.5-5.1); SODIUM 137 mmol/L (136-145)
--- NOTE | 2020-03-24 14:40 | NUR ---
INFECTIOUS DISEASE PROGRESS NOTE DR. LOWELL MILLER SUBJECTIVE: Ms. Moralez is feeling better, still short of breath, still cough but overall better. PHYSICAL EXAMINATION: VITAL SIGNS: Stable, afebrile. O2 saturation 96%. HEENT: She is not icteric. NECK: Supple. CHEST: Crackles. HEART: S1, S2. ABDOMEN: Soft. Bowel sounds present. EXTREMITIES: No edema. SKIN: No rash. Remains on 1 L but actually when Off, she was able to do well. LABS: reviewed RADIOLOGY: reviewed IMPRESSION: COVID 19 respiratory failure PLAN We will check her oxygen tomorrow, oxygenation saturation on ambulation, and if she does not need anything, could be discharged home to continue oral home medication. okay to d/c, doing well Phyllis Tang MSN, SUPERVISOR [employer], AGACNP-BC discussed with
[2020-03-24] MEDS: DEXAMETHASONE SOD PHOS 10 MG/1 ML VIAL IV SCH (14:53)
[2020-03-24] MEDS: REMDESIVIR 100MG/NS 100ML 100 MG IV SCH (14:53)
--- NOTE | 2020-03-24 15:37 | NUR ---
Home O2 eval was done by KASANDRA Burrows. 96% on RA, 93% being exerted on RA. Does not qualify for home oxygen.
--- NOTE | 2020-03-24 18:45 | NUR ---
Patient discharge to home via private auto. Discharge instructions provided to patient and to patient's spouse via facetime. Patient with limited gambian and fluent in gambian and albanian. Both verbalized an understanding in discharge instructions. marine services technician removed. IV to RAC removed without difficulty. All belongings with patient.
--- NOTE | 2020-03-25 02:44 | Discharge Summary ---
PRIMARY CARE PHYSICIAN: Dr. Lane Strickland. FINAL DISCHARGE DIAGNOSES: 1. Acute respiratory distress due to coronavirus disease 2019 pneumonia. 2. Leukopenia. 3. Hypothyroidism. CONSULTANTS: 1. Dr. Duncan, tool room machinist. 2. Dr. Bernal, Infectious Disease. PROCEDURES: None. HISTORY: Per HPI. HOSPITAL COURSE: This is a 55-year-old female with past medical history of hypothyroidism and recent diagnosis of COVID-19. She presented to the ER with acute respiratory distress with oxygen saturation of 86% on room air. Chest x-ray showed multifocal pneumonia, consistent with COVID-19 pneumonia. Power Switchboard Operator and ID were consulted. She was started on Rocephin, azithromycin, zinc sulfate, remdesivir, and dexamethasone. She has repeat 4 days total of remdesivir. She is cleared by Infectious Disease doctor to discharge home. She has remained stable, afebrile, O2 sats greater than 90% on room air. Does not require home O2. She is advised on quarantining for 2 weeks and follow up with Infectious Disease doctor for repeat tests. PHYSICAL EXAMINATION: VITAL SIGNS: Temperature 98.2, pulse is 62, respirations 16, blood pressure 122/74, pulse ox is 96% on 1.5 L of nasal cannula. GENERAL: No acute distress. HEENT: Normocephalic, atraumatic. NECK: Supple. LUNGS: With decreased breath sounds. GI: Soft and nontender. NEUROLOGIC: Alert, awake, and oriented x3. MUSCULOSKELETAL: Moves all extremities. SKIN: Dry. PSYCH: Calm. CONDITION AT DISCHARGE: Improved and stable. DISCHARGE MEDICATIONS: Resume all home medications. FOLLOWUP: Follow up with PCP and ID in 1 to 2 weeks. TIME SPENT: Total time of discharge is 32 minutes. Dictated by JOIE Delgado Kim Pineda MD MY/MODL /[id number] cc: Lane Strickland
[2020-03-28] MEDS ORDERED: DEXAMETHASONE SOD PHOS 10 MG/1 ML VIAL IV SCH (09:00)
== END 2020-03-24 18:35 | disposition home or self-care (01) | DRG 177 ==
LOC: ER 16:20 → ERHOLD 20:36 → IMCU 21:48
PROVIDERS: ADMIT Internal Medicine; ATTEND Internal Medicine
PROC: 8E0ZXY6 Isolation (ICD-10-PCS; 2020-03-21)
PROC: XW033E5 Introduction of Remdesivir Anti-infective into Peripheral Vein, Percutaneous Approach, New Technology Group 5 (ICD-10-PCS; principal; 2020-03-22)
DX: U07.1 COVID-19 (principal); J12.9 Viral pneumonia, unspecified; J96.00 Acute respiratory failure, unspecified whether with hypoxia or hypercapnia; E03.9 Hypothyroidism, unspecified
CPT/HCPCS: 36415; 71045; 71260; 80053; 82550; 82553; 83880; 84484; 85025; 85379; 85610; 85730; 87040; 93005; 93306; 99285; J0456; J0696; J1100; J1650; J2270; J2405; J7030; J7050; Q9967